=== PATIENT | female | born 1970 | race Caucasian/White ===

== ENCOUNTER 2017-03-12 20:17 | Emergency (ER) | payer BC ==
[~2017-03-12] VITALS: Ht 157.5 cm; Wt 84.5 kg
[~2017-03-12 20:17] MED LIST: ATIVAN 0.50.5 MG/TAB PO; COZAAR 25MG25 MG/TAB PO; FLONASE NASAL S16 GM NS; NO HOME MEDICATIONS; PRILOSEC 20MG20 MG PO; SYNTHROID0.075 MG/T PO
[2017-03-12 20:22] VITALS: TEMP 97.7
[2017-03-12 23:00] VITALS: BP 115/74; PULSE 88
== END 2017-03-12 23:10 | disposition home or self-care (01) ==
LOC: COL.ER 20:17
DX: R51 Headache (principal); R11.0 Nausea
CPT/HCPCS: J1200; J1885; J2405; J2550; J7030

== ENCOUNTER 2020-09-21 07:55 | Observation (INO) | payer BC ==
[~2020-09-21] VITALS: Ht 157.5 cm; Wt 88.6 kg
[~2020-09-21 07:55] MED LIST changes: +FIORICET 325 MG1 TA1 PO; +ZOFRAN ODT4 MG PO
[2020-09-21 08:22] LABS: BASO % 0.6 % (0.0-2.0); EOS # 0.2 (0.0-0.7); EOS % 3.3 % (0-4.0); GRAN # 4.2 (1.4-6.5); GRAN % 60.4 % (42.2-75.2); HEMATOCRIT 45.3 % (37.0-47.0); HEMOGLOBIN 15.4 g/dl (12.5-16.0); LYMPH % 28.3 % (20.0-51.0); MEAN CELL VOLUME 87 fl (80.0-100.0); MEAN CORPUSCULAR HEMOGLOBIN 30 pg (27.0-31.0); MEAN CORPUSCULAR HGB CONC 34 g/dl (33.0-37.0); MEAN PLATELET VOLUME 10.6 fl (7.4-10.4); MONO # 0.5 (0.1-0.6); PLATELET COUNT 258 K/mm3 (130-400); RED BLOOD COUNT 5.21 M/mm3 (4.10-5.30); REDCELL DISTRIBUTION WIDTH-CV 13.1 % (11.5-14.5)
[2020-09-21 08:31] LABS: ALANINE AMINOTRANSFERASE 19 U/L (4-34); ALBUMIN 4.1 gm/dL (3.5-5.0); ALKALINE PHOSPHATASE 79 U/L (50-136); ANION GAP 9 mmol/L (7-16); AST,SGOT 24 U/L (15-37); BILIRUBIN,TOTAL 0.4 mg/dL (0.0-1.0); BLOOD UREA NITROGEN 11 mg/dL (7-17); CALCIUM 9.1 mg/dL (8.4-10.2); CARBON DIOXIDE 25 mmol/L (22-30); CHLORIDE 105 mmol/L (98-107); CREATININE, serum 0.83 (0.52-1.25); GLUCOSE 118 mg/dL (74-106); POTASSIUM 3.8 mmol/L (3.4-5.0); SODIUM 138 mmol/L (137-145); TOTAL PROTEIN 7.4 gm/dL (6.4-8.2)
[2020-09-21 08:39] LABS: PROTHROMBIN TIME 10.7 SECONDS (9.7-12.8)
[2020-09-21 08:44] LABS: TROPONIN-I < 0.012 ng/mL (0.000-0.035)
[2020-09-21 10:36] LABS: COLLECTION METHOD CLEAN CATCH
[2020-09-21 10:41] LABS: PH 6 (5-8); SQUAMOUS EPITHELIAL 0-2 /hpf; URINE APPEARANCE Clear; URINE BACTERIA None Seen /hpf; URINE BILIRUBIN Negative (NEGATIVE); URINE BLOOD Negative (NEGATIVE); URINE COLOR Straw; URINE GLUCOSE Negative (NEGATIVE); URINE KETONE Negative (NEGATIVE); URINE LEUKOCYTE ESTERASE Negative (NEGATIVE); URINE NITRATE Negative (NEGATIVE); URINE PROTEIN(semi-quant) Negative (NEGATIVE); URINE RBC None Seen /hpf; URINE UROBILINOGEN Negative (NEGATIVE)
[2020-09-21 11:54] LABS: CHOLESTEROL RISK RATIO 5.2
[2020-09-21 12:12] VITALS: BP 143/90; PULSE 72; TEMP 97.9
--- NOTE | 2020-09-21 14:23 | NUR ---
PATIENT ASSESSMENT COMPLETED. SHE IS UP IN THE CHAIR DENIES CHEST PAIN.
[2020-09-21 15:27] VITALS: BP 149/87; PULSE 83; TEMP 97.8
[2020-09-21] MEDS ORDERED: NITROSTAT0.4 MG/TAB SL (16:57)
[2020-09-21] MEDS ORDERED: ASPIRIN E.C. 8181 MG PO (16:58)
[2020-09-21] MEDS ORDERED: NORVASC 5MG5 MG/TAB PO (16:58)
[2020-09-21] MEDS ORDERED: COZAAR 25MG25 MG/TAB PO (16:58)
--- NOTE | 2020-09-21 17:55 | NUR ---
PATIENT DISCHARGE INSTRUCTIONS REVIEWED WITH PATIENT. SHE DENIES FURTHER QUESTIONS. 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
[2020-09-21 18:17] LABS: TROPONIN-I < 0.012 ng/mL (0.000-0.035)
== END 2020-09-21 18:15 | disposition home or self-care (01) ==
LOC: COL.ER 07:55 → MEDICAL 10:26
PROVIDERS: Emergency Medicine; Student in an Organized Health Care Education/Training Program; ADMIT Family Medicine
DX: R07.9 Chest pain, unspecified (principal); I10 Essential (primary) hypertension; E03.9 Hypothyroidism, unspecified; K44.9 Diaphragmatic hernia without obstruction or gangrene; Z20.828 Contact with and (suspected) exposure to other viral communicable diseases; Z88.0 Allergy status to penicillin; Z88.2 Allergy status to sulfonamides; Z88.8 Allergy status to other drugs, medicaments and biological substances; Z79.890 Hormone replacement therapy; Z79.899 Other long term (current) drug therapy
CPT/HCPCS: J1650; Q9967

== ENCOUNTER 2020-12-03 18:31 | Emergency (ER) | payer BC ==
[~2020-12-03] VITALS: Ht 157.5 cm; Wt 84.5 kg
[~2020-12-03 18:31] MED LIST changes: +ASPIRIN E.C. 8181 MG PO; +NITROSTAT0.4 MG/TAB SL; +NORVASC 5MG5 MG/TAB PO
[2020-12-03 18:44] VITALS: TEMP 98.5
[2020-12-03 19:15] LABS: COLLECTION METHOD CLEAN CATCH
[2020-12-03 19:21] LABS: PH 5 (5-8); SQUAMOUS EPITHELIAL 0-2 /hpf; URINE APPEARANCE Clear; URINE BACTERIA Rare /hpf; URINE BILIRUBIN Negative (NEGATIVE); URINE BLOOD Negative (NEGATIVE); URINE COLOR Yellow; URINE GLUCOSE Negative (NEGATIVE); URINE KETONE Negative (NEGATIVE); URINE LEUKOCYTE ESTERASE Negative (NEGATIVE); URINE NITRATE Negative (NEGATIVE); URINE PROTEIN(semi-quant) Negative (NEGATIVE); URINE RBC 0-2 /hpf; URINE UROBILINOGEN Negative (NEGATIVE)
[2020-12-03 19:34] LABS: BASO % 0.4 % (0.0-2.0); EOS # 0.1 (0.0-0.7); EOS % 2.1 % (0-4.0); GRAN # 3.3 (1.4-6.5); GRAN % 69.3 % (42.2-75.2); HEMATOCRIT 41.6 % (37.0-47.0); HEMOGLOBIN 14.3 g/dl (12.5-16.0); LYMPH # 0.8 (1.2-3.4); LYMPH % 16.2 % (20.0-51.0); MEAN CELL VOLUME 85 fl (80.0-100.0); MEAN CORPUSCULAR HEMOGLOBIN 29 pg (27.0-31.0); MEAN CORPUSCULAR HGB CONC 34 g/dl (33.0-37.0); MEAN PLATELET VOLUME 9.8 fl (7.4-10.4); MONO # 0.5 (0.1-0.6); MONO % 10.9 % (1.7-9.3); PLATELET COUNT 198 K/mm3 (130-400); RED BLOOD COUNT 4.87 M/mm3 (4.10-5.30)
[2020-12-03 19:46] LABS: ALBUMIN 4.1 gm/dL (3.5-5.0); BILIRUBIN,TOTAL 0.4 mg/dL (0.0-1.0); CREATININE, serum 0.85 (0.52-1.25); TOTAL PROTEIN 7.2 gm/dL (6.4-8.2)
[2020-12-03 23:29] VITALS: BP 155/113; PULSE 88
== END 2020-12-03 23:29 | disposition home or self-care (01) ==
LOC: COL.ER 18:31
PROVIDERS: Physician Assistant
DX: R10.31 Right lower quadrant pain (principal); I10 Essential (primary) hypertension; E03.9 Hypothyroidism, unspecified; Z90.710 Acquired absence of both cervix and uterus; Z90.89 Acquired absence of other organs; Z90.49 Acquired absence of other specified parts of digestive tract; Z88.0 Allergy status to penicillin; Z88.1 Allergy status to other antibiotic agents; Z88.8 Allergy status to other drugs, medicaments and biological substances; Z79.82 Long term (current) use of aspirin; Z79.890 Hormone replacement therapy
CPT/HCPCS: J1885; Q9967

== ENCOUNTER 2020-12-06 23:11 | Emergency (ER) | payer BC ==
[~2020-12-06] VITALS: Ht 157.5 cm; Wt 84.5 kg
[2020-12-06 23:15] VITALS: BP 140/96; TEMP 97.1
[2020-12-06] MEDS ORDERED: ANTIVERT 25MG25 MG PO (23:42)
[2020-12-06] MEDS ORDERED: FLONASEALLERGY NS (23:42)
[2020-12-07 00:01] VITALS: PULSE 73
== END 2020-12-07 00:02 | disposition home or self-care (01) ==
LOC: COL.ER 23:11
DX: H92.01 Otalgia, right ear (principal); I10 Essential (primary) hypertension; Z88.0 Allergy status to penicillin; Z88.2 Allergy status to sulfonamides; Z88.8 Allergy status to other drugs, medicaments and biological substances; Z79.82 Long term (current) use of aspirin

== ENCOUNTER 2020-12-11 15:38 | Emergency (ER) | payer BC ==
[~2020-12-11] VITALS: Ht 157.5 cm; Wt 81.8 kg
[~2020-12-11 15:38] MED LIST changes: +ANTIVERT 25MG25 MG PO; +FLONASEALLERGY NS
[2020-12-11 15:59] VITALS: TEMP 98.1
[2020-12-11 16:39] LABS: HEMATOCRIT 42.9 % (37.0-47.0); HEMOGLOBIN 14.9 g/dl (12.5-16.0); MEAN CELL VOLUME 84 fl (80.0-100.0); MEAN CORPUSCULAR HEMOGLOBIN 29 pg (27.0-31.0); MEAN CORPUSCULAR HGB CONC 35 g/dl (33.0-37.0); MEAN PLATELET VOLUME 10.5 fl (7.4-10.4); PLATELET COUNT 213 K/mm3 (130-400); RED BLOOD COUNT 5.13 M/mm3 (4.10-5.30); REDCELL DISTRIBUTION WIDTH-CV 12.7 % (11.5-14.5)
[2020-12-11 16:49] LABS: ALBUMIN 4.2 gm/dL (3.5-5.0); BILIRUBIN,TOTAL 0.4 mg/dL (0.0-1.0); CALCIUM 9.4 mg/dL (8.4-10.2); CREATININE, serum 0.67 (0.52-1.25); POTASSIUM 3.7 mmol/L (3.4-5.0); TOTAL PROTEIN 7.5 gm/dL (6.4-8.2)
[2020-12-11 17:09] LABS: COLLECTION METHOD CLEAN CATCH
[2020-12-11 17:14] LABS: LYMPHOCYTE 7 % (20.0-51.0); NEUTROPHILS 92 % (42.0-75.2); PLATELET ESTIMATE NORMAL (NORMAL)
[2020-12-11 17:16] LABS: MUCOUS Present /lpf; PH 6 (5-8); SQUAMOUS EPITHELIAL 0-2 /hpf; URINE APPEARANCE Clear; URINE BACTERIA Rare /hpf; URINE BILIRUBIN Negative (NEGATIVE); URINE BLOOD Negative (NEGATIVE); URINE COLOR Straw; URINE GLUCOSE Negative (NEGATIVE); URINE KETONE Negative (NEGATIVE); URINE LEUKOCYTE ESTERASE Negative (NEGATIVE); URINE NITRATE Negative (NEGATIVE); URINE PROTEIN(semi-quant) Negative (NEGATIVE); URINE RBC None Seen /hpf; URINE UROBILINOGEN Negative (NEGATIVE)
[2020-12-11 17:20] LABS: TSH w REFLEX 0.311 uIU/mL (0.465-4.680)
[2020-12-11 19:45] VITALS: BP 138/86; PULSE 72
== END 2020-12-11 19:45 | disposition home or self-care (01) ==
LOC: COL.ER 15:38
PROVIDERS: Nurse Practitioner
DX: F41.9 Anxiety disorder, unspecified (principal); M25.511 Pain in right shoulder; I10 Essential (primary) hypertension; E03.9 Hypothyroidism, unspecified; G43.909 Migraine, unspecified, not intractable, without status migrainosus; Z88.0 Allergy status to penicillin; Z88.2 Allergy status to sulfonamides; Z88.8 Allergy status to other drugs, medicaments and biological substances; Z90.710 Acquired absence of both cervix and uterus; Z90.49 Acquired absence of other specified parts of digestive tract; Z79.82 Long term (current) use of aspirin; Z79.890 Hormone replacement therapy
CPT/HCPCS: J1885

== ENCOUNTER 2020-12-14 19:40 | Emergency (ER) | payer BC ==
[~2020-12-14] VITALS: Ht 152.4 cm; Wt 80.5 kg
[2020-12-14 19:56] VITALS: TEMP 97.4
[2020-12-14 21:16] LABS: HEMATOCRIT 41.6 % (37.0-47.0); HEMOGLOBIN 14.9 g/dl (12.5-16.0); MEAN CELL VOLUME 88 fl (80.0-100.0); MEAN CORPUSCULAR HEMOGLOBIN 31 pg (27.0-31.0); MEAN CORPUSCULAR HGB CONC 36 g/dl (33.0-37.0); MEAN PLATELET VOLUME 10.4 fl (7.4-10.4); PLATELET COUNT 199 K/mm3 (130-400); RED BLOOD COUNT 4.75 M/mm3 (4.10-5.30); REDCELL DISTRIBUTION WIDTH-CV 12.9 % (11.5-14.5)
[2020-12-14 21:25] LABS: ALANINE AMINOTRANSFERASE 32 U/L (4-34); ALBUMIN 3.8 gm/dL (3.5-5.0); ALKALINE PHOSPHATASE 89 U/L (50-136); ANION GAP 11 mmol/L (7-16); AST,SGOT 31 U/L (15-37); BILIRUBIN,TOTAL 0.6 mg/dL (0.0-1.0); BLOOD UREA NITROGEN 10 mg/dL (7-17); CALCIUM 8.6 mg/dL (8.4-10.2); CARBON DIOXIDE 26 mmol/L (22-30); CHLORIDE 100 mmol/L (98-107); CREATININE, serum 0.68 (0.52-1.25); GLUCOSE 107 mg/dL (74-106); LIPASE 91 U/L (23-300); SODIUM 137 mmol/L (137-145)
[2020-12-14 21:37] LABS: TROPONIN-I < 0.012 ng/mL (0.000-0.035)
[2020-12-14 21:38] LABS: BAND 3 % (0-10); LYMPHOCYTE 34 % (20.0-51.0); NEUTROPHILS 50 % (42.0-75.2)
[2020-12-14 21:39] LABS: MICROCYTOSIS 1+; PLATELET ESTIMATE NORMAL (NORMAL)
[2020-12-14 22:16] LABS: COLLECTION METHOD CLEAN CATCH
[2020-12-14 22:23] LABS: PH 6 (5-8); SQUAMOUS EPITHELIAL 0-2 /hpf; URINE APPEARANCE Clear; URINE BACTERIA Rare /hpf; URINE BILIRUBIN Negative (NEGATIVE); URINE BLOOD Negative (NEGATIVE); URINE COLOR Straw; URINE GLUCOSE Negative (NEGATIVE); URINE KETONE 1+ (NEGATIVE); URINE LEUKOCYTE ESTERASE Negative (NEGATIVE); URINE NITRATE Negative (NEGATIVE); URINE PROTEIN(semi-quant) Negative (NEGATIVE); URINE UROBILINOGEN Negative (NEGATIVE)
[2020-12-15] MEDS ORDERED: ROBAXIN 75750 MG/TAB PO (00:10)
[2020-12-15 00:29] VITALS: BP 143/71; PULSE 73
[2020-12-16 08:23] LABS: PATHOLOGY DIFF REVIEW OK
== END 2020-12-15 00:30 | disposition home or self-care (01) ==
LOC: COL.ER 19:40
PROVIDERS: Emergency Medicine
DX: R53.81 Other malaise (principal); R53.83 Other fatigue; E03.9 Hypothyroidism, unspecified; I10 Essential (primary) hypertension; Z88.0 Allergy status to penicillin; Z20.822 Contact with and (suspected) exposure to COVID-19; Z88.2 Allergy status to sulfonamides; Z88.8 Allergy status to other drugs, medicaments and biological substances; Z79.890 Hormone replacement therapy; Z79.82 Long term (current) use of aspirin
CPT/HCPCS: J1885; J2060; J7120

== ENCOUNTER 2021-01-21 10:30 | Emergency (ER) | payer BC ==
[~2021-01-21] VITALS: Ht 157.5 cm; Wt 79.5 kg
[~2021-01-21 10:30] MED LIST changes: +ROBAXIN 75750 MG/TAB PO
[2021-01-21] MEDS ORDERED: XANAX .25M0.25 MG/TA PO (12:29)
[2021-01-21 13:00] VITALS: BP 138/93; PULSE 85; TEMP 97.8
== END 2021-01-21 13:07 | disposition home or self-care (01) ==
LOC: COL.ER 10:30
DX: R53.81 Other malaise (principal); R53.83 Other fatigue; T45.0X5A Adverse effect of antiallergic and antiemetic drugs, initial encounter; I10 Essential (primary) hypertension; E03.9 Hypothyroidism, unspecified; Z88.0 Allergy status to penicillin; Z88.8 Allergy status to other drugs, medicaments and biological substances; Z88.2 Allergy status to sulfonamides; Z79.82 Long term (current) use of aspirin; Z79.899 Other long term (current) drug therapy; Z79.890 Hormone replacement therapy
CPT/HCPCS: J2060; J2550; J7040

== ENCOUNTER 2021-03-10 05:35 | Emergency (ER) | payer BC ==
[~2021-03-10] VITALS: Ht 157.5 cm; Wt 75.5 kg
[~2021-03-10 05:35] MED LIST changes: +XANAX .25M0.25 MG/TA PO
[2021-03-10 05:40] VITALS: TEMP 98.1
[2021-03-10 05:55] LABS: BASO % 0.5 % (0.0-2.0); EOS # 0.1 (0.0-0.7); EOS % 1.7 % (0-4.0); GRAN # 3.6 (1.4-6.5); HEMATOCRIT 44.6 % (37.0-47.0); HEMOGLOBIN 15.3 g/dl (12.5-16.0); LYMPH # 2.2 (1.2-3.4); LYMPH % 33.9 % (20.0-51.0); MEAN CELL VOLUME 86 fl (80.0-100.0); MEAN CORPUSCULAR HEMOGLOBIN 29 pg (27.0-31.0); MEAN CORPUSCULAR HGB CONC 34 g/dl (33.0-37.0); MEAN PLATELET VOLUME 10.1 fl (7.4-10.4); MONO # 0.5 (0.1-0.6); MONO % 7.3 % (1.7-9.3); PLATELET COUNT 229 K/mm3 (130-400); RED BLOOD COUNT 5.21 M/mm3 (4.10-5.30); REDCELL DISTRIBUTION WIDTH-CV 13.2 % (11.5-14.5)
[2021-03-10 06:08] LABS: ALANINE AMINOTRANSFERASE 19 U/L (4-34); ALBUMIN 4.3 gm/dL (3.5-5.0); ALKALINE PHOSPHATASE 76 U/L (50-136); ANION GAP 6 mmol/L (7-16); AST,SGOT 22 U/L (15-37); BILIRUBIN,TOTAL 0.5 mg/dL (0.0-1.0); BLOOD UREA NITROGEN 10 mg/dL (7-17); CALCIUM 9.4 mg/dL (8.4-10.2); CARBON DIOXIDE 23 mmol/L (22-30); CHLORIDE 106 mmol/L (98-107); CREATININE, serum 0.71 (0.52-1.25); GLUCOSE 120 mg/dL (74-106); POTASSIUM 3.6 mmol/L (3.4-5.0); SODIUM 136 mmol/L (137-145); TOTAL PROTEIN 7.6 gm/dL (6.4-8.2)
[2021-03-10 06:20] LABS: TROPONIN-I < 0.012 ng/mL (0.000-0.035)
[2021-03-10 08:32] VITALS: BP 140/85; PULSE 81
== END 2021-03-10 08:35 | disposition home or self-care (01) ==
LOC: COL.ER 05:35
PROVIDERS: Emergency Medicine
DX: R07.89 Other chest pain (principal); R94.6 Abnormal results of thyroid function studies; I10 Essential (primary) hypertension; E03.9 Hypothyroidism, unspecified; Z79.82 Long term (current) use of aspirin; Z79.890 Hormone replacement therapy; Z79.899 Other long term (current) drug therapy
CPT/HCPCS: J1885; J2060

== ENCOUNTER 2021-05-03 11:33 | Emergency (ER) | payer BC ==
[~2021-05-03] VITALS: Ht 157.5 cm; Wt 72.7 kg
[2021-05-03 12:02] VITALS: TEMP 98.6
[2021-05-03 13:48] VITALS: BP 132/80; PULSE 78
== END 2021-05-03 13:58 | disposition home or self-care (01) ==
LOC: COL.ER 11:33
DX: F41.9 Anxiety disorder, unspecified (principal)

== ENCOUNTER 2021-07-08 05:26 | Emergency (ER) | payer BC ==
[~2021-07-08] VITALS: Ht 160 cm; Wt 70.5 kg
[2021-07-08 05:33] VITALS: TEMP 97.8
[2021-07-08 05:58] LABS: BASO % 0.6 % (0.0-2.0); EOS # 0.2 (0.0-0.7); EOS % 3.7 % (0-4.0); GRAN # 3.3 (1.4-6.5); GRAN % 66.1 % (42.2-75.2); HEMATOCRIT 44.5 % (37.0-47.0); HEMOGLOBIN 15.2 g/dl (12.5-16.0); LYMPH % 20.1 % (20.0-51.0); MEAN CELL VOLUME 87 fl (80.0-100.0); MEAN CORPUSCULAR HEMOGLOBIN 30 pg (27.0-31.0); MEAN CORPUSCULAR HGB CONC 34 g/dl (33.0-37.0); MEAN PLATELET VOLUME 10.1 fl (7.4-10.4); MONO # 0.5 (0.1-0.6); MONO % 9.1 % (1.7-9.3); PLATELET COUNT 196 K/mm3 (130-400); RED BLOOD COUNT 5.11 M/mm3 (4.10-5.30); REDCELL DISTRIBUTION WIDTH-CV 12.5 % (11.5-14.5)
[2021-07-08 06:22] LABS: CALCIUM 9.4 mg/dL (8.4-10.2); CREATININE, serum 0.86 mg/dL (0.57-1.11); POTASSIUM 3.7 mmol/L (3.5-4.5); TOTAL PROTEIN 7.2 gm/dL (6.2-8.1)
[2021-07-08 06:28] LABS: TROPONIN-I 0.015 ng/mL (0.00-0.033)
[2021-07-08 06:43] LABS: BILIRUBIN,TOTAL 0.6 mg/dL (0.2-1.2)
[2021-07-08 09:17] VITALS: BP 133/79; PULSE 75
== END 2021-07-08 09:17 | disposition home or self-care (01) ==
LOC: COL.ER 05:26
PROVIDERS: Emergency Medicine
DX: R07.89 Other chest pain (principal); R00.2 Palpitations; E03.9 Hypothyroidism, unspecified; I10 Essential (primary) hypertension; Z79.899 Other long term (current) drug therapy; Z88.8 Allergy status to other drugs, medicaments and biological substances; Z79.890 Hormone replacement therapy
CPT/HCPCS: J7030

== ENCOUNTER → 2021-08-26 | Outpatient (CLI) | payer BC | LOC: MC.RAD 08:08 | DX: Z12.31 Encounter for screening mammogram for malignant neoplasm of breast (principal) ==

== ENCOUNTER → 2021-11-24 | Outpatient (CLI) | payer BC | LOC: COL.RAD 09:27 | DX: M43.12 Spondylolisthesis, cervical region (principal) ==